=== PATIENT | male | born 1995 | race Caucasian/White ===

== ENCOUNTER 2016-11-19 11:37 | Emergency (ER) | payer MEDICARE ==
[~2016-11-19] VITALS: Ht 185.4 cm; Wt 60.6 kg
[~2016-11-19 11:37] MED LIST: MAXAIR AUTOHALE14 GM IH; SINGULAIR10 MG PO; TYLENOL EXTRA500 MG PO; ZITHROMAX Z-PA250 MG PO; ZYRTEC10 M2 PO
[2016-11-19 15:13] VITALS: BP 111/97
== END 2016-11-19 15:13 | disposition left against medical advice (07) ==
LOC: EME 11:37
DX: H53.8 Other visual disturbances (principal); J45.909 Unspecified asthma, uncomplicated; F17.200 Nicotine dependence, unspecified, uncomplicated
CPT/HCPCS: 99281; 99282